=== PATIENT | male | born 1965 | race Caucasian/White ===

== ENCOUNTER → 2018-08-04 | Outpatient (CLI) | payer OTHER | END | disposition home or self-care (01) | LOC: CVU 10:18 | PROVIDERS: ATTEND Internal Medicine Cardiovascular Disease | DX: I11.9 Hypertensive heart disease without heart failure (principal); E78.5 Hyperlipidemia, unspecified | CPT/HCPCS: C8929; Q9957 ==

== ENCOUNTER 2020-11-05 11:31 | Inpatient (IN) | payer OTHER ==
[~2020-11-05] VITALS: Ht 162.6 cm; Wt 160.2 kg
--- NOTE | 2020-11-05 12:28 | NUR ---
PT PRESENTS W BG > 500. PT STATES HE FEELS WEAK, FOGGY AND NOT WELL FOR FEW DAYS. PT DENIES HX OF DM2. STATES HE IS PREDIABETIC. HX OF HEART DISEASE. DENIES CP OR SOB
[2020-11-05] MEDS ORDERED: SODIUM CHLORIDE FLUSH 10ML SYR IVF ONE (12:30)
[2020-11-05] MEDS ORDERED: SODIUM CHLORIDE 0.9% 1,000ML IVBOLUS ONE ×2 (12:30→14:30)
[2020-11-05 12:43] LABS: PH, VENOUS 7.358 pH (7.320-7.420)
[2020-11-05 12:48] LABS: BASOPHILS % (AUTO) 1 % (0-1); EOSINOPHILS % (AUTO) 1 % (1-7); LYMPHOCYTES % (AUTO) 21 % (22-44); MEAN CORPUSCULAR HEMOGLOBIN 30.4 pg (27.5-34.5); MEAN CORPUSCULAR HGB CONC 35.1 g/dL (33.2-36.2); MEAN PLATELET VOLUME 9.5 fL (7.4-10.4); MONOCYTES % (AUTO) 5 % (2-9); NEUTROPHILS % (AUTO) 72 % (42-75); PLATELET COUNT 186 x10^3/uL (130-400); RED BLOOD COUNT 4.72 x10^6/uL (4.38-5.82); RED CELL DISTRIBUTION WIDTH 16.2 % (9.4-14.8)
[2020-11-05 12:57] LABS: ALANINE AMINOTRANSFERASE 57 U/L (12-78); ALBUMIN 3.5 g/dL (3.4-5.0); ANION GAP 10 mmol/L (5-15); CALCIUM 8.4 mg/dL (8.5-10.1); CHLORIDE 100 mmol/L (98-107); CREATININE 0.75 mg/dL (0.7-1.3)
[2020-11-05 12:59] LABS: ALKALINE PHOSPHATASE 150 U/L (45-117); BILIRUBIN,TOTAL 0.8 mg/dL (0.2-1.0); TOTAL PROTEIN 7.5 g/dL (6.4-8.2)
[2020-11-05 13:12] LABS: ACETONE, SERUM Moderate(40mg/dL) (Negative)
--- NOTE | 2020-11-05 13:25 | NUR ---
PT AMBULATED TO BATHROOM W STEADY GAIT
[2020-11-05] MEDS ORDERED: INSULIN SINGLE DOSE, ER ONE (15:59)
[2020-11-05] MEDS ORDERED: INSULIN REGULAR 100 UNITS/ML, 3ML VIAL SQ-INSULIN ONE (16:00)
[2020-11-05] MEDS ORDERED: SODIUM CHLORIDE FLUSH 10ML SYR IVF PRN (16:30)
[2020-11-05] MEDS ORDERED: LISI-170 PO (16:54)
[2020-11-05] MEDS ORDERED: ATOR20TA37 PO (16:55)
[2020-11-05] MEDS ORDERED: CLOP75TA PO (16:55)
[2020-11-05] MEDS ORDERED: ENALAPRILAT 1.25 MG/ML, 2ML IVPush PRN (17:00)
[2020-11-05] MEDS ORDERED: ACETAMINOPHEN 325 MG TABLET PO PRN (17:00)
--- NOTE | 2020-11-05 17:00 | NUR ---
PHONE REPORT TO CONNER HENNESSY
[2020-11-05] MEDS: ENOXAPARIN 40 MG/0.4 ML SQ SCH (17:23)
[2020-11-05] MEDS: SODIUM CHLORIDE 0.9% 1,000 ML IV SCH (17:23)
[2020-11-05 17:34] VITALS: BP 171/80
[2020-11-05 20:17] LABS: MICROSCOPIC AUTO
[2020-11-05] MEDS ORDERED: MELATONIN 5 MG TABLET PO PRN (21:00)
[2020-11-05 21:23] VITALS: BP 176/93
[2020-11-05] MEDS: INSULIN LISPRO 100 UNITS/ML, PEN SQ-INSULIN SCH (21:43)
[2020-11-05] MEDS: ATORVASTATIN 40 MG TABLET PO SCH (21:43)
[2020-11-06 00:25] VITALS: BP 152/89
[2020-11-06] MEDS: SODIUM CHLORIDE 0.9% 1,000 ML IV SCH ×2 (03:20→12:15)
[2020-11-06 05:05] LABS: BASOPHILS % (AUTO) 1 % (0-1); EOSINOPHILS % (AUTO) 1 % (1-7); LYMPHOCYTES % (AUTO) 32 % (22-44); MEAN CORPUSCULAR HEMOGLOBIN 29.9 pg (27.5-34.5); MEAN PLATELET VOLUME 9.5 fL (7.4-10.4); MONOCYTES % (AUTO) 7 % (2-9); NEUTROPHILS % (AUTO) 59 % (42-75); PLATELET COUNT 166 x10^3/uL (130-400); RED BLOOD COUNT 4.56 x10^6/uL (4.38-5.82); RED CELL DISTRIBUTION WIDTH 16.1 % (9.4-14.8)
[2020-11-06 05:15] LABS: ALANINE AMINOTRANSFERASE 56 U/L (12-78); ALBUMIN 3.2 g/dL (3.4-5.0); ANION GAP 5 mmol/L (5-15); CALCIUM 8.2 mg/dL (8.5-10.1); CHLORIDE 105 mmol/L (98-107); CREATININE 0.64 mg/dL (0.7-1.3)
[2020-11-06 05:18] LABS: ALKALINE PHOSPHATASE 137 U/L (45-117); BILIRUBIN,TOTAL 0.5 mg/dL (0.2-1.0); TOTAL PROTEIN 7.4 g/dL (6.4-8.2)
[2020-11-06 07:19] VITALS: BP 174/96
[2020-11-06] MEDS: CLOPIDOGREL 75 MG TABLET PO SCH (07:36)
[2020-11-06] MEDS: INSULIN LISPRO 100 UNITS/ML, PEN SQ-INSULIN SCH ×4 (08:02→19:47)
[2020-11-06 08:32] VITALS: BP 168/94
[2020-11-06] MEDS ORDERED: LISINOPRIL 20 MG TABLET PO SCH (09:00)
[2020-11-06] MEDS ORDERED: INSULIN GLARGINE 100 UNITS/ML, PEN SQ-INSULIN SCH (10:00)
[2020-11-06 13:13] VITALS: BP 153/84
[2020-11-06] MEDS: ENOXAPARIN 40 MG/0.4 ML SQ SCH (16:09)
[2020-11-06 18:06] VITALS: BP_SYST 159; BP_SYST 164; BP_DIAS 89; BP_DIAS 98
[2020-11-06] MEDS: LISINOPRIL 20 MG TABLET PO SCH ×2 (18:09→19:46)
[2020-11-06 19:44] VITALS: BP 153/83
[2020-11-06] MEDS: ATORVASTATIN 40 MG TABLET PO SCH (19:46)
[2020-11-06] MEDS: INSULIN GLARGINE 100 UNITS/ML, PEN SQ-INSULIN SCH (19:48)
[2020-11-07 00:13] VITALS: BP 137/82
[2020-11-07 07:58] VITALS: BP 164/97
[2020-11-07] MEDS: LISINOPRIL 20 MG TABLET PO SCH (08:09)
[2020-11-07] MEDS: INSULIN GLARGINE 100 UNITS/ML, PEN SQ-INSULIN SCH (08:09)
[2020-11-07] MEDS: CLOPIDOGREL 75 MG TABLET PO SCH (08:10)
[2020-11-07] MEDS: INSULIN LISPRO 100 UNITS/ML, PEN SQ-INSULIN SCH ×3 (08:10→17:13)
[2020-11-07] MEDS ORDERED: INSU100I11 SQ-INSULIN (12:35)
[2020-11-07] MEDS ORDERED: INSU100I13 SQ-INSULIN (12:35)
[2020-11-07] MEDS ORDERED: LISI-170 PO (12:35)
[2020-11-07] MEDS ORDERED: ENOXAPARIN 30 MG/0.3 ML SQ ONE (13:05)
[2020-11-07 13:12] VITALS: BP 163/90
[2020-11-07 15:23] VITALS: BP 150/89
[2020-11-08] MEDS ORDERED: ENOXAPARIN 30 MG/0.3 ML SQ SCH
== END 2020-11-07 19:05 | disposition home or self-care (01) | DRG 638 ==
LOC: ED 12:55 → EDIP 16:02 → 3N 16:40
PROVIDERS: ADMIT Hospitalist; ATTEND Hospitalist
PROC: 5A09357 Assistance with Respiratory Ventilation, Less than 24 Consecutive Hours, Continuous Positive Airway Pressure (ICD-10-PCS; principal; 2020-11-06)
DX: E11.65 Type 2 diabetes mellitus with hyperglycemia (principal); Z68.44 Body mass index [BMI] 60.0-69.9, adult; K42.9 Umbilical hernia without obstruction or gangrene; E66.01 Morbid (severe) obesity due to excess calories; E78.00 Pure hypercholesterolemia, unspecified; E78.5 Hyperlipidemia, unspecified; G47.33 Obstructive sleep apnea (adult) (pediatric); I10 Essential (primary) hypertension; I25.10 Atherosclerotic heart disease of native coronary artery without angina pectoris; Z79.02 Long term (current) use of antithrombotics/antiplatelets; Z79.4 Long term (current) use of insulin
CPT/HCPCS: 36415; 80053; 81001; 82010; 82803; 82962; 83036; 84443; 85025; 94660; 96361; 96374; 99285; G0378; J1650; J1815; J7030

== ENCOUNTER 2021-01-05 00:36 | Emergency (ER) | payer OTHER ==
[~2021-01-05 00:36] MED LIST: ATOR20TA37 PO; CLOP75TA PO; INSU100I11 SQ-INSULIN; INSU100I13 SQ-INSULIN; LISI-170 PO
[2021-01-05] MEDS ORDERED: ACETAMINOPHEN 500 MG TABLET ONE ×2 (01:24→01:31)
[2021-01-05] MEDS ORDERED: ACETAMINOPHEN 500 MG TABLET PO ONE (01:30)
[2021-01-05 01:41] VITALS: BP 158/59
--- NOTE | 2021-01-05 01:41 | NUR ---
PT CMAE INTO ED TONIGHT DUE TO A MECHANICAL GLF WHILE WALKING INTO WORK. PT DENIES LOC OR BLOOD THINNERS, REPORTS THAT HE FELL DOWN TO HIS KNEES. NO OBVIOUS DEFORMITIES NOTED ON ARRIVAL AND PT ABLE TO WALK BUT REPORTS DISCOMFORT WITH MOVEMENT. PT PROVIDED ICE FOR COMFORT, MEDICATED PER MAR FOR PAIN AND INFLAMMATION. NAD, BED IN LOWEST, RAILS ENGAGED, CALL LIGHT ON LAP, WCTM. WAITING FOR RAD READ.
== END 2021-01-05 02:51 | disposition home or self-care (01) ==
LOC: ED 00:58
DX: S80.01XA Contusion of right knee, initial encounter (principal); S80.02XA Contusion of left knee, initial encounter; I25.10 Atherosclerotic heart disease of native coronary artery without angina pectoris; E11.9 Type 2 diabetes mellitus without complications; E78.00 Pure hypercholesterolemia, unspecified; I10 Essential (primary) hypertension; W01.0XXA Fall on same level from slipping, tripping and stumbling without subsequent striking against object, initial encounter; Y93.89 Activity, other specified; Y92.69 Other specified industrial and construction area as the place of occurrence of the external cause; Y99.8 Other external cause status
CPT/HCPCS: 99283

== ENCOUNTER 2021-01-23 13:55 | Outpatient (CLI) | payer OTHER | END 2021-01-23 23:59 | disposition home or self-care (01) | LOC: CVU 13:55 | PROVIDERS: ATTEND Internal Medicine Cardiovascular Disease | DX: I08.1 Rheumatic disorders of both mitral and tricuspid valves (principal); E78.5 Hyperlipidemia, unspecified; I45.10 Unspecified right bundle-branch block; E11.9 Type 2 diabetes mellitus without complications; I11.9 Hypertensive heart disease without heart failure | CPT/HCPCS: C8929; Q9957 ==